=== PATIENT | male | born 1970 | race American Indian/Alaskan Native ===

== ENCOUNTER 2018-10-15 12:39 | Emergency (ER) | payer MEDICAID ==
[2018-10-15 13:01] VITALS: BMI 41.3
[2018-10-15 13:04] VITALS: RESP 18; O2SAT 99
--- NOTE | 2018-10-15 13:07 | ED PDOC ---
Lower Extremity Pain/Injury Time Seen by Provider: 10/15/18 12:51 Chief Complaint (Nursing): Lower Extremity Problem/Injury Chief Complaint (Provider): Lower Extremity Problem/Injury History Per: Patient History/Exam Limitations: no limitations Onset/Duration Of Symptoms: Days (x1 day) Current Symptoms Are (Timing): Still Present Additional Complaint(s): Patient is a 48 year old male who presents for evaluation of atraumatic left foot pain localized to the 1st metatarsal joint. He states he has a history of gout with similar symptoms. Patient states he does not take daily medications for it and manages it with his diet. His last flare up was x7 years ago. He states he has not taken any medication prior to arrival in ED. Otherwise: (-) fever, (-) fall, (-) injury, (-) vomiting, (-) shortness of breath, (-) chest pain, (-) tobacco abuse, (-) prolonged inactivity(-) numbness/weakness, (-) other injury or other medical complaints. Of note, patient found to have elevated blood pressure reading upon arriving at the ED. He states he has not taken his medication since April of 2018 and he denies any complaints related to his elevated blood pressure reading. Patient does have a Rx in his bag for Labetolol 200 mg, which he should be taking BID. PMD: [facility] Past Medical History Reviewed: Historical Data, Nursing Documentation, Vital Signs Vital Signs: Last Vital Signs Temp 99 F 10/15/18 13:00 Pulse 88 10/15/18 13:00 Resp 18 10/15/18 13:00 BP 177/100 H 10/15/18 13:00 Pulse Ox 99 10/15/18 13:00 - Medical History PMH: HTN Other PMH: Gout - Surgical History Surgical History: No Surg Hx - Family History Family History: States: Unknown Family Hx - Social History Current smoker - smoking cessation education provided: No Ex-Smoker (has not smoked in the last 12 months): No Alcohol: None Drugs: Denies - Home Medications Home Medications: Ambulatory Orders Medication Instructions Recorded Colchicine 0.6 mg PO DAILY #7 tablet 10/15/18 Indomethacin 50 mg PO TID PRN #21 capsule 10/15/18 Methylprednisolone [Medrol Dose 4 mg PO DAILY #21 mg 10/15/18 Pack (21 tabs)] - Allergies Allergies/Adverse Reactions: Allergies Allergy/AdvReac Type Severity Reaction Status Date / Time No Known Allergies Allergy Verified 10/15/18 13:00 Review of Systems ROS Statement: Except As Marked, All Systems Reviewed And Found Negative Constitutional: Negative for: Fever Cardiovascular: Negative for: Chest Pain Respiratory: Negative for: Shortness of Breath Gastrointestinal: Negative for: Vomiting Musculoskeletal: Positive for: Foot Pain (left foot pain with swelling) Physical Exam - Reviewed Nursing Documentation Reviewed: Yes Vital Signs Reviewed: Yes - Physical Exam Comments: GENERALIZED APPEARANCE: Patient is AAO x 3 in no acute distress. Limping in ED. VITAL SIGNS: Per nurse's note, reviewed by me. SKIN: Warm, dry; (-) cyanosis. LOWER EXTREMITY: Moderate swelling, erythema and warmth with marked tenderness of the firstMTP joint of Left foot; (+) decreased flexion of toe secondary to pain; Remainder of Left Foot: (+) Full ROM (-) tenderness; (+) sensation and capillary refill intact; (+) positive pulses; (-) calf tenderness; (-) palpable cord (-) break in skin ANKLE: FROM(-) swelling, (-) tenderness. NECK:Supple, FROM CHEST AND RESPIRATORY: (-) rales, (-) rhonchi, (-) wheezes; breath sounds equal bilaterally. Respirations even and nonlabored. HEART AND CARDIOVASCULAR: (-) irregularity ABDOMEN AND GI: Soft; (-) tenderness. NEURO AND PSYCH: Mental status as above. (-) facial asymmetry.Gait: steady. Speech: clear. Normal cognition. - ECG O2 Sat by Pulse Oximetry: 99 (RA) Pulse Ox Interpretation: Normal Medical Decision Making Medical Decision Making: Time: 1305 Impression: Acute foot pain, Gout; Elevated blood pressure reading Plan: --Colocrys 1.2 mg PO --Toradol 30 mg IM --Trandate 200 mg PO --predniSONE tab 60 mg PO 1410 Patient's BP reading remains elevated in ED. Clonidine 0.1mg PO ordered. On re-evaluation, patient reports improvement of symptoms and is resting comfortably. 1515 Repeat BP: 158/88 Patient placed in surgical shoe by ED RN. NV intact after placement. Patient educated on diet choices to relieve gout. Patient continues to deny any complaints related to elevated BP reading. On re-evaluation, patient reports improvement of symptoms. On exam, patient remains AAOx3, in no acute distress. Vitals stable. RICE encouraged. Lab/Diagnostic results d/w the patient in great detail. Diagnosis of acute foot/toe pain, gout; elevated blood pressure reading d/w the patient. Based on history, exam and diagnostic results, plan will be for outpatient follow up with PMD/podiatry. Patient instructed to follow-up with pmd / referral provided / the clinic in 1- 2 days without fail. Advised to take medication as prescribed. Return to the emergency room at any time for any new or worsening symptoms. Patient states he fully agrees with and understands discharge instructions. States that he agrees with the plan and disposition. Verbalized and repeated discharge instructions and plan. I have given the patient opportunity to ask any additional questions. Scribe Attestation: Documented by Omar Womack acting as a scribe for Marybel Baron Provider Scribe Attestation: All medical record entries made by the Scribe were at my direction and personally dictated by me. I have reviewed the chart and agree that the record accurately reflects my personal performance of the history, physical exam, medical decision making, and the department course for this patient. I have also personally directed, reviewed, and agree with the discharge instructions and disposition. Disposition - Clinical Impression Clinical Impression: Gout, Elevated blood pressure reading, Acute foot pain - Patient ED Disposition Is Patient to be Admitted: No Counseled Patient/Family Regarding: Studies Performed, Diagnosis, Need For Followup, Rx Given - Disposition Referrals: [facility] [Outside] Podiatry Clinic [Outside] primary, doctor [Other] Disposition: Routine/Home Disposition Time: 15:15 Condition: STABLE Additional Instructions: PLEASE TAKE YOUR BLOOD PRESSURE MEDICATION PRESCRIBED. FOLLOW UP WITHIN 48 HOURS. The emergency medical care you received today was directed at your acute symptoms. If you were prescribed any medication, please fill it and take as directed. It may take several days for your symptoms to resolve. Return to the Emergency Department if your symptoms worsen, do not improve, or if you have any other problems. Please contact your doctor in 2 days for re-evaluation and follow up / or call one of the physicians/clinics you have been referred to that are listed on the Patient Visit Information form that is included in your discharge packet. Bring any paperwork you were given at discharge with you along with any medications you are taking to your follow up visit. Our treatment cannot replace ongoing medical care by a primary care provider (PCP) outside of the emergency department. Prescriptions: Colchicine 0.6 mg PO DAILY #7 tablet Indomethacin 50 mg PO TID PRN #21 capsule PRN Reason: Pain, Moderate (4-7) Methylprednisolone [Medrol Dose Pack (21 tabs)] 4 mg PO DAILY #21 mg Instructions: Gout, High Blood Pressure in Adults, DASH Diet, Lifestyle Changes to Manage Gout, Medicines for High Blood Pressure, Metatarsalgia (DC), Hypertension (ED) Forms: Arthena (Polish) Print Language: SWEDISH - POA Present On Arrival: None
[2018-10-15 15:39] VITALS: BP 154/90; PULSE 81; TEMP 98.4
== END 2018-10-15 15:38 | disposition home or self-care (01) ==
LOC: H.ER 12:39
DX: M10.9 Gout, unspecified (principal); I10 Essential (primary) hypertension; M79.672 Pain in left foot
CPT/HCPCS: 96372; 99283; J1885